=== PATIENT | female | born 1945 | race Caucasian/White ===

== ENCOUNTER 2017-03-08 11:41 | Inpatient (IN) | payer BC ==
[2017-03-08] MEDS: IV NORMAL SALINE 500ML BAG 500 ML IV (12:29)
[2017-03-08] MEDS: HYDROmorphone 2 MG/ML VIAL IV ×4 (12:29→17:37)
[2017-03-08] MEDS: fentaNYL PF VIAL 100 MCG/2 ML VIAL IV ×3 (13:23→22:34)
[2017-03-08] MEDS ORDERED: ONDANSETRON PF 4 MG/2 ML VIAL. IV ×4 (13:30→22:00)
[2017-03-08] MEDS: IV NORMAL SALINE 1000ML BAG 1,000 ML IV ×2 (13:30→23:30)
[2017-03-08] MEDS: IV RINGERS,LACTATED 1000ML 1,000 ML IV ×2 (13:46→22:00)
[2017-03-08] MEDS ORDERED: PROCHLORPERAZINE 10 MG/2 ML VIAL. IV ×3 (14:00→22:00)
[2017-03-08] MEDS ORDERED: HYDROmorphone 2 MG/ML VIAL IV ×3 (14:00→22:00)
[2017-03-08] MEDS ORDERED: LIDOCAINE 1% PF 2 ML VIAL. ID ×3 (14:00→22:00)
[2017-03-08] MEDS ORDERED: fentaNYL PF VIAL 100 MCG/2 ML VIAL IV ×4 (14:00→22:00)
[2017-03-08] MEDS ORDERED: MORPHINE SULFATE 2 MG/ML DISP.SYRIN. IV ×3 (14:00→22:00)
[2017-03-08] MEDS ORDERED: fentaNYL PF VIAL 100 MCG/2 ML VIAL ×2 (19:23→20:30)
[2017-03-08] MEDS ORDERED: KETAMINE HCL 500 MG/10 ML VIAL. (19:24)
[2017-03-08] MEDS ORDERED: PROPOFOL 20 ML IV (19:38)
[2017-03-08] MEDS ORDERED: LIDOCAINE 2% PF Vial for OR 5 ML VIAL. (19:38)
[2017-03-08] MEDS ORDERED: SEVOFLURANE 61 TO 120 MINUTES. IH (19:53)
[2017-03-08] MEDS ORDERED: DEXAMETHASONE SOD PHOS 20 MG/5 ML VIAL. (19:53)
[2017-03-08] MEDS ORDERED: ONDANSETRON PF 4 MG/2 ML VIAL. (21:08)
[2017-03-08] MEDS: IPRATRPIUM/ALBUTEROL 0.5/2.5MG 3 ML NEBU. NEB (21:30)
[2017-03-08] MEDS ORDERED: IV RINGERS,LACTATED 1000ML 1,000 ML IV (21:56)
[2017-03-09] MEDS: traMADol 50 MG TABLET PO (00:53)
[2017-03-09] MEDS: IV NORMAL SALINE 1000ML BAG 1,000 ML IV (04:00)
[2017-03-09 04:44] LABS: BASO % 0 % (0-3); EOS % 0 % (0-3); HEMATOCRIT 32.9 % (36.0-47.0); HEMOGLOBIN 10.8 g/dL (12.0-15.5); LYMPH # 0.7 x10^3/uL (1.0-4.8); LYMPH % 5 % (24-48); MEAN CORPUSCULAR HEMOGLOBIN 31 pg (25-35); MEAN CORPUSCULAR HGB CONC 33 g/dL (31-37); MEAN CORPUSCULAR VOLUME 93 fL (79-100); MONO # 0.7 x10^3/uL (0.0-1.1); MONO % 5 % (0-9); NEUT # 12.3 x10^3uL (1.8-7.7); NEUT % 90 % (31-73); PLATELET COUNT 266 x10^3/uL (140-400); RED BLOOD COUNT 3.53 x10^6/uL (3.50-5.40); RED CELL DISTRIBUTION WIDTH 13.2 % (11.5-14.5); WHITE BLOOD COUNT 13.7 x10^3/uL (4.0-11.0)
[2017-03-09 05:32] LABS: ANION GAP 8 (6-14); BLOOD UREA NITROGEN 11 mg/dL (7-20); CALCIUM 8.1 mg/dL (8.5-10.1); CARBON DIOXIDE 29 mmol/L (21-32); CHLORIDE 102 mmol/L (98-107); CREATININE 0.9 mg/dL (0.6-1.0); GFR 62.1; GLUCOSE 159 mg/dL (70-99); POTASSIUM 4.5 mmol/L (3.5-5.1); SODIUM 139 mmol/L (136-145)
[2017-03-09 05:42] LABS: ADD MAN DIFF? YES
[2017-03-09 07:30] LABS: BILIRUBIN,URINE SMALL (NEG); CLARITY,URINE CLEAR; COLOR,URINE AMBER; GLUCOSE,URINE NEGATIVE (NEG); NITRITE,URINE NEGATIVE (NEG); PH,URINE 5.5; PROTEIN,URINE NEGATIVE (NEG-TRACE); UROBILINOGEN,URINE 0.2 mg/dL (0.2 mg/dL)
[2017-03-09 07:32] LABS: HYALINE CASTS, URINE MODERATE /HPF; SQUAMOUS EPITHELIAL CELL,UR OCC /LPF
[2017-03-09 07:33] LABS: BACTERIA,URINE MODERATE /HPF (0-FEW)
[2017-03-09] MEDS: IPRATRPIUM/ALBUTEROL 0.5/2.5MG 3 ML NEBU. NEB ×4 (08:04→19:14)
[2017-03-09] MEDS: BUDESONIDE 0.5 MG/2 ML NEBU. NEB ×2 (08:04→19:15)
[2017-03-09] MEDS: oxyCODONE/APAP 5/325 1 TAB TABLET PO ×4 (08:23→20:38)
[2017-03-09] MEDS: fentaNYL 25MCG/HR PATCH 1 PATCH PATCH.TD72 TD (08:23)
[2017-03-09 10:01] LABS: % BANDS 1 % (0-9); % LYMPHS 3 % (24-48); % MONOS 5 % (0-10); % SEGS 91 % (35-66)
[2017-03-09 10:03] LABS: PLT ESTIMATE ADEQUATE (ADEQUATE)
[2017-03-09] MEDS ORDERED: MORPHINE SULFATE 2 MG/ML DISP.SYRIN. IV ×2 (18:45)
[2017-03-09] MEDS ORDERED: oxyCODONE/APAP 5/325 1 TAB TABLET PO (18:45)
[2017-03-09] MEDS: ISOSORBIDE MONONITRATE ER 30 MG TAB.ER.24H PO (20:38)
[2017-03-09] MEDS: LORazepam 0.5 MG TABLET PO (20:38)
[2017-03-09] MEDS: DOCUSATE SODIUM 100 MG CAPSULE. PO (20:38)
[2017-03-10] MEDS: IV NORMAL SALINE 1000ML BAG 1,000 ML IV ×2 (00:30→13:50)
[2017-03-10] MEDS: oxyCODONE/APAP 5/325 1 TAB TABLET PO ×5 (03:26→22:42)
[2017-03-10] MEDS: LORazepam 0.5 MG TABLET PO ×2 (03:56→14:08)
[2017-03-10] MEDS: IPRATRPIUM/ALBUTEROL 0.5/2.5MG 3 ML NEBU. NEB ×5 (05:50→20:08)
[2017-03-10] MEDS: BUDESONIDE 0.5 MG/2 ML NEBU. NEB ×3 (05:51→20:07)
[2017-03-10] MEDS: fentaNYL 25MCG/HR PATCH 1 PATCH PATCH.TD72 TD (09:49)
[2017-03-10] MEDS: CYCLOBENZAPRINE 10 MG TABLET. PO (18:36)
[2017-03-10] MEDS: ISOSORBIDE MONONITRATE ER 30 MG TAB.ER.24H PO (22:41)
[2017-03-10] MEDS: DOCUSATE SODIUM 100 MG CAPSULE. PO (22:42)
[2017-03-11] MEDS: IV NORMAL SALINE 1000ML BAG 1,000 ML IV (03:10)
[2017-03-11] MEDS: oxyCODONE/APAP 5/325 1 TAB TABLET PO ×4 (05:49→21:15)
[2017-03-11] MEDS: IPRATRPIUM/ALBUTEROL 0.5/2.5MG 3 ML NEBU. NEB ×4 (08:21→19:46)
[2017-03-11] MEDS: BUDESONIDE 0.5 MG/2 ML NEBU. NEB ×2 (08:22→19:47)
[2017-03-11] MEDS: LORazepam 0.5 MG TABLET PO (10:11)
[2017-03-11] MEDS: CYCLOBENZAPRINE 10 MG TABLET. PO ×2 (13:50→21:14)
[2017-03-11] MEDS: traMADol 50 MG TABLET PO (13:52)
[2017-03-11] MEDS: ISOSORBIDE MONONITRATE ER 30 MG TAB.ER.24H PO (21:14)
[2017-03-11] MEDS: DOCUSATE SODIUM 100 MG CAPSULE. PO (21:14)
[2017-03-12] MEDS: LORazepam 0.5 MG TABLET PO ×2 (01:55→20:42)
[2017-03-12] MEDS: CYCLOBENZAPRINE 10 MG TABLET. PO (03:38)
[2017-03-12] MEDS: oxyCODONE/APAP 5/325 1 TAB TABLET PO ×4 (03:38→21:34)
[2017-03-12] MEDS: IPRATRPIUM/ALBUTEROL 0.5/2.5MG 3 ML NEBU. NEB ×4 (07:51→19:28)
[2017-03-12] MEDS: BUDESONIDE 0.5 MG/2 ML NEBU. NEB ×2 (07:51→19:28)
[2017-03-12] MEDS: fentaNYL 25MCG/HR PATCH 1 PATCH PATCH.TD72 TD (09:33)
[2017-03-12] MEDS: ONDANSETRON ODT 4 MG TAB.RAPDIS. PO ×3 (11:22→20:42)
[2017-03-12] MEDS: POLYETHYLENE GLYCOL 3350 17 GM PACKET. PO (11:22)
[2017-03-12] MEDS: MAGNESIUM CITRATE 296 ML SOLUTION. PO (21:33)
[2017-03-12] MEDS: ISOSORBIDE MONONITRATE ER 30 MG TAB.ER.24H PO (21:34)
[2017-03-12] MEDS: DOCUSATE SODIUM 100 MG CAPSULE. PO (21:35)
[2017-03-13] MEDS: LORazepam 0.5 MG TABLET PO ×2 (03:56→16:53)
[2017-03-13] MEDS: ONDANSETRON ODT 4 MG TAB.RAPDIS. PO ×2 (03:56→08:48)
[2017-03-13] MEDS: oxyCODONE/APAP 5/325 1 TAB TABLET PO ×3 (03:56→19:36)
[2017-03-13 05:05] LABS: ADD MAN DIFF? NO
[2017-03-13 05:12] LABS: BASO % 0 % (0-3); EOS # 0.1 x10^3/uL (0.0-0.7); EOS % 1 % (0-3); LYMPH # 1.6 x10^3/uL (1.0-4.8); LYMPH % 12 % (24-48); MEAN CORPUSCULAR HEMOGLOBIN 30 pg (25-35); MEAN CORPUSCULAR HGB CONC 32 g/dL (31-37); MEAN CORPUSCULAR VOLUME 94 fL (79-100); MONO # 0.9 x10^3/uL (0.0-1.1); MONO % 7 % (0-9); NEUT # 10.1 x10^3uL (1.8-7.7); NEUT % 80 % (31-73); PLATELET COUNT 312 x10^3/uL (140-400); RED BLOOD COUNT 2.98 x10^6/uL (3.50-5.40); RED CELL DISTRIBUTION WIDTH 13.7 % (11.5-14.5); WHITE BLOOD COUNT 12.8 x10^3/uL (4.0-11.0)
[2017-03-13] MEDS: IPRATRPIUM/ALBUTEROL 0.5/2.5MG 3 ML NEBU. NEB ×4 (07:01→17:58)
[2017-03-13] MEDS: BUDESONIDE 0.5 MG/2 ML NEBU. NEB ×2 (07:01→17:57)
[2017-03-13] MEDS: BISMUTH SUBSALICYLATE 262 MG/15 ML ORAL.SUSP 236ML BOTTLE. PO ×2 (11:56→20:58)
[2017-03-13 16:26] LABS: POC GLUCOSE 129 mg/dL (70-99)
[2017-03-13] MEDS: ISOSORBIDE MONONITRATE ER 30 MG TAB.ER.24H PO (20:57)
[2017-03-13] MEDS: DOCUSATE SODIUM 100 MG CAPSULE. PO (20:57)
[2017-03-14] MEDS: LORazepam 0.5 MG TABLET PO (00:23)
[2017-03-14] MEDS: oxyCODONE/APAP 5/325 1 TAB TABLET PO ×6 (00:24→21:29)
[2017-03-14] MEDS: ALBUTEROL SULFATE 2.5 MG/3 ML NEBU. NEB (00:36)
[2017-03-14] MEDS: BUDESONIDE 0.5 MG/2 ML NEBU. NEB ×2 (07:17→20:02)
[2017-03-14] MEDS: IPRATRPIUM/ALBUTEROL 0.5/2.5MG 3 ML NEBU. NEB ×4 (07:17→20:02)
[2017-03-14] MEDS: POLYETHYLENE GLYCOL 3350 17 GM PACKET. PO (07:52)
[2017-03-14] MEDS: BISMUTH SUBSALICYLATE 262 MG/15 ML ORAL.SUSP 236ML BOTTLE. PO (07:53)
[2017-03-14] MEDS: ONDANSETRON ODT 4 MG TAB.RAPDIS. PO (07:53)
[2017-03-14] MEDS: fentaNYL 25MCG/HR PATCH 1 PATCH PATCH.TD72 TD (09:30)
[2017-03-14] MEDS: ISOSORBIDE MONONITRATE ER 30 MG TAB.ER.24H PO (20:45)
[2017-03-14] MEDS: DOCUSATE SODIUM 100 MG CAPSULE. PO (20:45)
[2017-03-15] MEDS: oxyCODONE/APAP 5/325 1 TAB TABLET PO ×2 (03:28→12:45)
[2017-03-15] MEDS: BISMUTH SUBSALICYLATE 262 MG/15 ML ORAL.SUSP 236ML BOTTLE. PO (03:30)
[2017-03-15] MEDS: fentaNYL 75MCG/HR PATCH 1 PATCH PATCH.TD72 TD (09:10)
[2017-03-15] MEDS: POLYETHYLENE GLYCOL 3350 17 GM PACKET. PO (09:10)
[2017-03-15] MEDS: CYCLOBENZAPRINE 10 MG TABLET. PO (09:10)
[2017-03-15] MEDS: SENNOSIDES 8.6 MG TABLET PO (09:11)
[2017-03-15] MEDS: LORazepam 0.5 MG TABLET PO ×2 (09:11→18:17)
[2017-03-15] MEDS: BUDESONIDE 0.5 MG/2 ML NEBU. NEB ×2 (09:30→20:33)
[2017-03-15] MEDS: IPRATRPIUM/ALBUTEROL 0.5/2.5MG 3 ML NEBU. NEB ×4 (09:31→20:33)
[2017-03-15] MEDS: MAGNESIUM CITRATE 296 ML SOLUTION. PO (12:46)
[2017-03-15] MEDS: IBUPROFEN 600 MG TABLET. PO ×2 (18:16→21:58)
[2017-03-15] MEDS: PANTOPRAZOLE 40 MG TABLET.DR. PO (18:16)
[2017-03-15] MEDS: DOCUSATE SODIUM 100 MG CAPSULE. PO (21:58)
[2017-03-15] MEDS: ISOSORBIDE MONONITRATE ER 30 MG TAB.ER.24H PO (21:59)
[2017-03-16] MEDS: IPRATRPIUM/ALBUTEROL 0.5/2.5MG 3 ML NEBU. NEB ×4 (06:46→20:42)
[2017-03-16] MEDS: BUDESONIDE 0.5 MG/2 ML NEBU. NEB ×2 (06:46→20:42)
[2017-03-16] MEDS: PANTOPRAZOLE 40 MG TABLET.DR. PO (09:29)
[2017-03-16] MEDS: IBUPROFEN 600 MG TABLET. PO ×3 (09:29→20:57)
[2017-03-16] MEDS: METHYLNALTREXONE 12 MG/0.6 ML VIAL. SQ (14:33)
[2017-03-16] MEDS: LORazepam 0.5 MG TABLET PO (17:23)
[2017-03-16] MEDS ORDERED: ACETAMINOPHEN 500 MG TABLET PO (18:30)
[2017-03-16] MEDS: DOCUSATE SODIUM 100 MG CAPSULE. PO (20:57)
[2017-03-16] MEDS: ISOSORBIDE MONONITRATE ER 30 MG TAB.ER.24H PO (20:57)
[2017-03-17] MEDS: IPRATRPIUM/ALBUTEROL 0.5/2.5MG 3 ML NEBU. NEB ×3 (06:09→15:38)
[2017-03-17] MEDS: BUDESONIDE 0.5 MG/2 ML NEBU. NEB (06:09)
[2017-03-17] MEDS: IBUPROFEN 600 MG TABLET. PO ×2 (07:46→14:53)
[2017-03-17] MEDS: PANTOPRAZOLE 40 MG TABLET.DR. PO (07:46)
[2017-03-17] MEDS: oxyCODONE/APAP 5/325 1 TAB TABLET PO (07:46)
[2017-03-17] MEDS ORDERED: DOCUSATE SODIUM 283 MG/5 ML ENEMA. PR (09:45)
[2017-03-17] MEDS: ONDANSETRON ODT 4 MG TAB.RAPDIS. PO (10:41)
[2017-03-17] MEDS: LORazepam 0.5 MG TABLET PO (14:58)
[2017-03-17] MEDS: MECLIZINE HCL 12.5 MG TABLET. PO (16:36)
[2017-03-18] MEDS ORDERED: BISACODYL 5 MG TABLET.DR. PO (09:00)
== END 2017-03-17 16:40 | disposition hospice, home (50) | DRG 481 ==
LOC: 4 NORTH 03-10 05:41 → ER 11:41 → 4 NORTH 13:30
PROC: 0QS606Z Reposition Right Upper Femur with Intramedullary Internal Fixation Device, Open Approach (ICD-10-PCS; principal; 2017-03-08 19:37)
DX: M84.551A Pathological fracture in neoplastic disease, right femur, initial encounter for fracture (principal); C79.51 Secondary malignant neoplasm of bone; I11.0 Hypertensive heart disease with heart failure; I50.9 Heart failure, unspecified; Z99.81 Dependence on supplemental oxygen; B35.1 Tinea unguium; D64.9 Anemia, unspecified; C34.90 Malignant neoplasm of unspecified part of unspecified bronchus or lung; J44.9 Chronic obstructive pulmonary disease, unspecified; D72.829 Elevated white blood cell count, unspecified; E78.5 Hyperlipidemia, unspecified; F41.9 Anxiety disorder, unspecified; I25.10 Atherosclerotic heart disease of native coronary artery without angina pectoris; L60.0 Ingrowing nail; L60.1 Onycholysis; M19.90 Unspecified osteoarthritis, unspecified site; W01.0XXA Fall on same level from slipping, tripping and stumbling without subsequent striking against object, initial encounter; Z51.5 Encounter for palliative care; R73.9 Hyperglycemia, unspecified; Z66 Do not resuscitate; I25.2 Old myocardial infarction; Z95.5 Presence of coronary angioplasty implant and graft; Z87.891 Personal history of nicotine dependence; Z80.0 Family history of malignant neoplasm of digestive organs; Y93.89 Activity, other specified; Y92.89 Other specified places as the place of occurrence of the external cause; Y99.8 Other external cause status; Z88.8 Allergy status to other drugs, medicaments and biological substances
CPT/HCPCS: 36415; 71010; 72020; 73502; 73552; 73560; 73590; 73610; 76000; 80048; 81001; 82962; 85007; 85025; 87086; 94640; 94760; 96361; 96374; 97110-GO; 97162-GP; 97166-GO; 97530-GP; 97535-GO; 99285; 99285-25; C1713; C1887; J0690; J1100; J1170; J2212; J2405; J2704; J3010; J3490; J7030; J7040; J7613; J7620; J7626; J8597; Q0162